=== PATIENT | female | born 1940 | race Caucasian/White ===

== ENCOUNTER 2017-11-16 07:10 | Day surgery (SDC) | payer OTHER ==
[2017-11-15 17:29] LABS: Urine Appearance CLOUDY; Urine Blood NEGATIVE (NEG); Urine Color YELLOW; Urine Glucose NEGATIVE (NEG); Urine Protein NEGATIVE (NEG); Urine pH 5.5 (5.0-7.0)
[2017-11-15 17:40] LABS: Urine Bilirubin NEGATIVE (NEG); Urine Microscopic Reflex ORDER UMIC
[2017-11-15 17:59] LABS: Urine Bacteria 20-50 /HPF (<20); Urine Culture Reflex Order REFLEXED; Urine RBC <5 /HPF (NONE SEEN)
[2017-11-15 18:00] LABS: Calcium Oxalate Crystals- Ur MANY (NONE SEEN)
[2017-11-16] MEDS ORDERED: Ringers Lactate 1,000 ML IV ONE (07:44)
[2017-11-16] MEDS ORDERED: CEFAZOLIN/SWI 1gm 1 GM/10 ML SYR ONE (07:45)
[2017-11-16] MEDS: BOTU TOX TYPE A 100 UNIT/VIAL ID SCH ×2 (08:04→08:33)
[2017-11-16] MEDS ORDERED: LIDOCAINE 2% MPF 5 ML VIAL ONE (08:19)
[2017-11-16] MEDS ORDERED: MIDAZOLAM HCL 2 MG/2 ML INJ ONE (08:19)
[2017-11-16] MEDS ORDERED: PROPOFOL 200 MG/20 ML VIAL IV ONE ×2 (08:19→08:37)
[2017-11-16] MEDS ORDERED: NS 0.9% VIAL 20 ML ONE (08:26)
[2017-11-16 10:06] VITALS: BP 117/88; TEMP 97; O2SAT 95
--- NOTE | 2017-11-16 19:59 | OP ---
Date of Procedure: 11/16/2017 Surgeon: Eda Ashley MD Preoperative Diagnosis: Refractory overactive bladder. Postoperative Diagnosis: Refractory overactive bladder. Procedures Performed: Cystoscopy, injection of Botox. Anesthesia: MAC. Specimens: None. Complications: None. Drains: None. Condition: The patient is stable. Indications: The patient is a 76-year-old with refractory overactive bladder. She has back pain and spinal stenosis, some of the urge urinary incontinence, Urgency incontinence is likely due to this, however, she was tried on medical treatment and failed, so she was consented for surgery. Procedure In Detail: After informed consent was verified, patient was brought back to the OR. She w as placed in a supine fashion on the operating table. After MAC was given, she was placed in a dorsa l lithotomy position. One gram of Ancef was given. She was placed in a dorsal lithotomy position an d cystoscopy was performed with the help of 30-degree lens, a 17-Thai sheath, and normal saline for distention medium. The bladder was filled about to 300 and scope was performed checking all the wal ls of the bladder including the trigone, area above the trigone, the dome, lateral hernadez. No evidenc e of any tumor, foreign body, or diverticula trabeculation seen. Metaplastic change seen in the trig onal transitional epithelium. Both ureteric orifices were normal in position and had strong jets of urine from each side. The Botox 100 units was taken and diluted in 10 mL of normal saline, and this was injected 0.5 cc in 20 locations. Then, another 1 mL of saline flush was used to flush the catheter with 2 more injectio ns. Three rows of injections were done. She had an excellent hemostasis. The sites of injection neff ve small clots that were hemostatic. So, after irrigation and drainage of the bladder, the scope and the sheath were removed. The patient was recovered from anesthesia and taken to PACU in stable cond ition. She will follow up with me in 5 days and then in 10 days for voiding trials and postop follow up appointment. RENNY/XAVIER Voice ID: [id number] Report ID: [id number]
== END 2017-11-16 09:50 | disposition home or self-care (01) ==
LOC: OR 07:10
PROVIDERS: ATTEND Obstetrics & Gynecology
PROC: 0TJB8ZZ Inspection of Bladder, Via Natural or Artificial Opening Endoscopic (ICD-10-PCS; 2017-11-16)
PROC: 3E0K8GC Introduction of Other Therapeutic Substance into Genitourinary Tract, Via Natural or Artificial Opening Endoscopic (ICD-10-PCS; principal; 2017-11-16 08:30)
DX: N32.81 Overactive bladder (principal); N95.2 Postmenopausal atrophic vaginitis; I10 Essential (primary) hypertension; N39.3 Stress incontinence (female) (male)
CPT/HCPCS: 53899; 87077; 87086; 87088; 87186; J0585; J0690; J2250; 81003; 81015

== ENCOUNTER 2018-09-19 10:31 | Day surgery (SDC) | payer OTHER ==
[2018-09-19] MEDS ORDERED: NA CHLORIDE 0.9% 500 ML ONE (12:09)
[2018-09-19] MEDS ORDERED: BUPIVACAINE 0.25% PF 10 ML VIAL ONE (12:11)
[2018-09-19] MEDS ORDERED: LIDOCAINE 2% MPF 5 ML VIAL ONE (12:11)
[2018-09-19] MEDS ORDERED: NS 0.9% VIAL 10 ML ONE (12:21)
[2018-09-19] MEDS ORDERED: TETRACAINE HCL 0.5% 4ML OPTH ONE (12:23)
[2018-09-19] MEDS: EPINEPHRINE/PF 1 MG/ML AMP ONE ×2 (13:17→14:42)
[2018-09-19] MEDS: BALANCED SALT IRRIG PLAIN 500 ML BTL IRR ONE ×2 (13:17→14:40)
[2018-09-19] MEDS: DUOVISC 1 KIT OPTH ONE ×2 (13:18→14:42)
[2018-09-19] MEDS: MOXIFLOXACIN HCL 10 DROPS/ML **OR USE OPTH ONE ×2 (13:18→14:57)
[2018-09-19] MEDS: PHENYLEPHRINE 10% OPTH 5ML ONE ×3 (13:38→13:48)
[2018-09-19] MEDS: CYCLOPENTOLATE 1% OPTH 2 ML ONE ×3 (13:38→13:48)
[2018-09-19] MEDS ORDERED: LIDOCAINE 1% MPF 5 ML VIAL ONE (14:35)
[2018-09-19] MEDS ORDERED: PROPOFOL 200 MG/20 ML VIAL IV ONE (14:35)
--- NOTE | 2018-09-19 15:07 | P.BOP ---
Preoperative diagnosis: Nuclear sclerotic and posterior subcapsular cataract OD Postoperative diagnosis: Same Primary procedure: Phacoemulsification with IOL OD Estimated blood loss: None Anesthesia: Local (Subtenon's infusion with anesthesia for cataract surgery) Complications: None Implants: ZCB00 +20.5 Transferred to: Other (Day surgery) Condition: Good
[2018-09-19 15:13] VITALS: BP 126/94; TEMP 97; O2SAT 98
--- NOTE | 2018-09-20 02:19 | OP ---
Date of Procedure: 09/19/2018 Surgeon: Lakshmi Bhatt MD Anesthesiologist: Peter Neely CRNA, Yahaira Bustamante CRNA, Perez Mitchell MD. Preoperative Diagnosis: Nuclear sclerotic cataract and posterior subcapsular cataract OD (right eye) . Operation Performed: Phacoemulsification with intraocular lens implant, right eye. Anesthesia: Per cataract surgery. Complications: None. Description Of Procedure: In day surgery, the patient was prepped with Betadine and draped. A conju nctival incision was made in the inferior nasal quadrant with Angie scissors. A sub-Tenon block c onsisting of a 1:1 mixture of 2% Xylocaine and 0.25% bupivacaine was placed through the conjunctival incision with a blunt cannula. A Honan balloon was placed over the eye and the patient was transferr ed to the operating room. In the operating room the patient was prepped and draped in the usual sterile fashion for ophthalmic surgery. A lid speculum was placed in the right eye. Two paracentesis sites were made superiorly an d inferiorly in the limbal cornea. Viscoat was placed in the anterior chamber and a crescent blade w as used to make a corneal groove and tunnel, and a keratome was used to enter the anterior chamber. Provisc was placed in the anterior chamber and a 360 degree capsulotomy was performed with a cystitom e. The lens was hydrodissected with BSS and rotated freely. The lens was removed with a stop and ch op technique. 14.64 Phaco CDE was used to remove the lens. Residual cortex was removed with the irr igation and aspiration. Provisc was placed in the capsular bag. A ZCB00 + 20.5 lens was placed in t he capsular bag without complications. Irrigation and aspiration were used to remove residual viscoe lastic. The paracentesis sites were hydrated with BSS. The wound and paracentesis sites were inspec batsheva and found to be watertight. Vigamox 0.07 cc was placed intracamerally at the end of the procedur e. The eye was irrigated with balanced salt solution. The eye was patched with a soft cotton patch and Kelly metal shield. The patient was returned to day surgery in good condition. Discharge Instructions: Ms. Jason Joseph is discharged to home in good condition and is to follow up with Dr. Leidlein in the morning. SHAUN/XAVIER Voice ID: [id number] Report ID: [id number]
== END 2018-09-19 15:28 | disposition home or self-care (01) ==
LOC: OR 10:31
PROVIDERS: ATTEND Ophthalmology Retina Specialist
PROC: 08RJ3JZ Replacement of Right Lens with Synthetic Substitute, Percutaneous Approach (ICD-10-PCS; principal; 2018-09-19 12:15)
DX: H25.11 Age-related nuclear cataract, right eye (principal); H25.041 Posterior subcapsular polar age-related cataract, right eye; I10 Essential (primary) hypertension; K21.9 Gastro-esophageal reflux disease without esophagitis; E78.00 Pure hypercholesterolemia, unspecified; F41.9 Anxiety disorder, unspecified; Z88.6 Allergy status to analgesic agent; Z88.8 Allergy status to other drugs, medicaments and biological substances; Z80.9 Family history of malignant neoplasm, unspecified
CPT/HCPCS: 36415; 84132; 66984; J2704; J0171

== ENCOUNTER 2019-10-20 14:34 | Emergency (ER) | payer OTHER ==
[2019-10-20] MEDS ORDERED: KETOROLAC 30 MG/ML INJ ONE (15:37)
[2019-10-20 15:52] LABS: Potassium 3.4 mmol/L (3.5-5.1)
[2019-10-20 15:57] LABS: Absolute Lymphocytes (CBC) 1.8 K/uL (0.7-4.9); Basophils % 0.5 % (0-1.3); Hematocrit 37.8 % (36.0-45.0); Lymphocytes % 25.7 % (15.3-44.8); MPV 9.7 fL (7.6-11.3)
--- NOTE | 2019-10-20 16:42 | RAD REPORT ---
EXAM DESCRIPTION: CT - Head C Spine Cap W Con - 10/20/2019 4:19 pm CLINICAL HISTORY: PAIN COMPARISON: Abdomen Pelvis W Contrast dated 05/12/2018 TECHNIQUE: Axial [address] head images were obtained. Axial [address] cervical spine images were obtaine d with sagittal and coronal reconstruction images reviewed. During dynamic enhancement of 100mL non-i onic contrast, axial 5 mm images of the chest, abdomen and pelvis were obtained. Biphasic technique p erformed of the abdomen and pelvis. All CT scans are performed using dose optimization technique as appropriate and may include automated exposure control or mA/KV adjustment according to patient size. FINDINGS: No intracranial hemorrhage, mass or edema. No midline shift or abnormal fluid collection. Mild to moderate atrophy and mild chronic ischemic changes are present. Ventricles are in proportion to the amount of volume loss. Arterial and physiologic calcifications are present. Mastoid air cells and paranasal sinuses are clear. No skull fracture. CT cervical spine imaging shows normal height. Normal alignment of the vertebrae. Degenerative change present at the dens C1 level. Facet joint degenerative changes minimal. No disc space narrowing. No paraspinal mass or hematoma seen. Central canal detail is inherently limited. Concerns for traumatic disc herniation or traumatic cord injury can be further addressed with MR imaging. CT chest shows no pneumothorax, pulmonary contusion or pleural fluid collection. No mediastinal hemat maisha and the aorta and pulmonary arteries are unremarkable. No chest will mass or abnormal axillary fi nding. No displaced rib fracture or other significant bony finding. Bilateral breast implants are in place. Scarring changes are seen in the lung parenchyma. Neurostimulator device in place in the lower left back soft tissues extending wiring into the central canal. CT abdomen and pelvis show no injury to solid abdominal viscera. Gallbladder and biliary tree are unr emarkable. No bowel injury or significant finding. No free air, free fluid or abnormal stranding. No urinary bladder abnormality. Postsurgical and degenerative changes are present in the lower lumbar spine. No acute lumbar or pelvi c finding. No significant vascular finding. IMPRESSION: No acute CT Head finding. No acute or significant cervical spine finding. No significant CT Chest finding. No significant CT Abdomen and Pelvis finding.
--- NOTE | 2019-10-20 17:17 | EDPHYS ---
Physician Documentation [facility] Name: Alice Joseph Age: 78 yrs Sex: Female : 1940 Arrival Date: 10/20/2019 Time: 14:34 Bed 19 Private MD: ED Physician Prashant Guy HPI: 10/19 17:15 This 78 yrs old Female presents to ER via EMS with complaints of Fall Injury. ma2 17:15 Details of fall: The patient fell from a supine position. Onset: The symptoms/episode ma2 began/occurred suddenly, 1 hour(s) ago. Severity of symptoms: in the emergency department the symptoms have improved, are actually worse, shortness of breath. The patient has not experienced similar symptoms in the past. Historical: - Home Meds: 15:12 verapamil 180 mg Oral TbER 1 tab once daily [Active]; hydrochlorothiazide 12.5 mg Oral bp cap 1 cap once daily [Active]; Xanax 2 mg Oral tab at night or prn for anxiety [Active]; pravastatin 40 mg Oral tab 1 tab once daily [Active]; pantoprazole 40 mg Oral TbEC 1 tab 2 times per day [Active]; clobenzaprine 5 mg 1-2 at bedtime prn [Active]; topiramate 50 mg oral tab 1 tab 2 times per day [Active]; alendronate 70 mg/75 mL oral soln 75 mL once wkly [Active]; Apriso 0.375 gram oral cp24 4 caps once daily [Active]; - PMHx: 15:12 chronic back pain; GERD; hiatal hernia; Hypertension; ibs; bp - Immunization history:: Adult Immunizations up to date. - Social history:: Smoking status: Patient denies any tobacco usage or history of. Patient/guardian denies using alcohol, street drugs, The patient lives with family. - Family history:: not pertinent. ROS: 17:15 Constitutional: Negative for fever, chills, and weight loss. ma2 17:15 All other systems are negative. Exam: 17:15 Constitutional: This is a well developed, well nourished patient who is awake, alert, ma2 and in no acute distress. Head/Face: scalp contusion Normocephalic, atraumatic. Eyes: Pupils equal round and reactive to light, extra-ocular motions intact. Lids and lashes normal. Conjunctiva and sclera are non-icteric and not injected. Cornea within normal limits. Periorbital areas with no swelling, redness, or edema. ENT: Nares patent. No nasal discharge, no septal abnormalities noted. Tympanic membranes are normal and external auditory canals are clear. Oropharynx with no redness, swelling, or masses, exudates, or evidence of obstruction, uvula midline. Mucous membranes moist. Neck: Trachea midline, no thyromegaly or masses palpated, and no cervical lymphadenopathy. Supple, full range of motion without nuchal rigidity, or vertebral point tenderness. No Meningismus. Chest/axilla: Normal chest wall appearance and motion. Nontender with no deformity. No lesions are appreciated. Cardiovascular: Regular rate and rhythm with a normal S1 and S2. No gallops, murmurs, or rubs. Normal PMI, no JVD. No pulse deficits. Respiratory: Lungs have equal breath sounds bilaterally, clear to auscultation and percussion. No rales, rhonchi or wheezes noted. No increased work of breathing, no retractions or nasal flaring. Abdomen/GI: Soft, non-tender, with normal bowel sounds. No distension or tympany. No guarding or rebound. No evidence of tenderness throughout. Back: No spinal tenderness. No costovertebral tenderness. Full range of motion. Female : Normal external genitalia. MS/ Extremity: Pulses equal, no cyanosis. Neurovascular intact. Full, normal range of motion. Neuro: Awake and alert, GCS 15, oriented to person, place, time, and situation. Cranial nerves II-XII grossly intact. Motor strength 5/5 in all extremities. Sensory grossly intact. Cerebellar exam normal. Normal gait. Vital Signs: 14:31 BP 148 / 91; Pulse 83; Temp 97.3(O); Pulse Ox 100% on R/A; jp3 14:35 BP 159 / 99; Pulse 80; Resp 18; Temp 97.3; Pulse Ox 100% ; Weight 71.67 kg; Height 5 bp ft. 3 in. (160.02 cm); 15:32 BP 162 / 97; Pulse 74; Resp 16; Pulse Ox 95% ; bp 16:34 BP 132 / 90; Pulse 73; Resp 16; Pulse Ox 98% ; bp 18:00 BP 137 / 100; Pulse 71; Resp 16; Temp 97.5; Pulse Ox 95% ; bp 14:35 Body Mass Index 27.99 (71.67 kg, 160.02 cm) bp MDM: 14:55 Patient medically screened. ma2 17:15 Differential diagnosis: abrasion, closed head injury, contusion, fracture. Data ma2 reviewed: vital signs, nurses notes. Counseling: I had a detailed discussion with the patient and/or guardian regarding: the historical points, exam findings, and any diagnostic results supporting the discharge/admit diagnosis, the presence of at least one elevated blood pressure reading (>120/80) during this emergency department visit, the need for outpatient follow up. Response to treatment: the patient's symptoms have resolved after treatment. 10/19 15:10 Order name: Basic Metabolic Panel; Complete Time: 16:55 ma2 10/19 15:10 Order name: CBC with Diff; Complete Time: 16:55 ma2 10/19 15:10 Order name: CT Traumagram (Head C Spine CAP W Con); Complete Time: 16:55 ma2 10/19 15:10 Order name: Type And Screen; Complete Time: 16:55 ma2 10/19 15:58 Order name: CREATININE WHOLE BLOOD; Complete Time: 16:55 EDTN 10/19 15:10 Order name: Labs collected and sent; Complete Time: 15:31 ma2 Administered Medications: 15:30 Drug: TORadol 30 mg Route: IVP; Site: right forearm; bp 16:35 Follow up: Response: Pain is decreased bp Disposition: 10/20/19 17:16 Discharged to Home. Impression: Acute post-traumatic headache. - Condition is Stable. - Discharge Instructions: Concussion, Adult, Fall Prevention in Hospitals, Adult. - Medication Reconciliation Form, Thank You Letter, Antibiotic Education, Prescription Opioid Use form. - Follow up: Private Physician; When: Tomorrow; Reason: Continuance of care. Signatures: Dispatcher [employer] Jose Roa RN RN bp Alzahri, Mohammad, MD MD ma2 Corrections: (The following items were deleted from the chart) 18:02 17:16 10/20/2019 17:16 Discharged to Home. Impression: Acute post-traumatic headache. bp Condition is Stable. Forms are Medication Reconciliation Form, Thank You Letter, Antibiotic Education, Prescription Opioid Use. Follow up: Private Physician; When: Tomorrow; Reason: Continuance of care. ma2
--- NOTE | 2019-10-20 17:17 | ER ---
Nurse's Notes [facility] Name: Alice Joseph Age: 78 yrs Sex: Female : 1940 Arrival Date: 10/20/2019 Time: 14:34 Bed 19 Private MD: Diagnosis: Acute post-traumatic headache Presentation: 10/19 14:35 Chief complaint: EMS states: FALL FROM STANDING ON BED, NO LOC, AMBULATORY ON SCENE. bp Coronavirus screen: Proceed with normal triage. Ebola Screen: No symptoms or risks identified at this time. Initial Sepsis Screen: Does the patient meet any 2 criteria? No. Patient's initial sepsis screen is negative. Does the patient have a suspected source of infection? No. Patient's initial sepsis screen is negative. Risk Assessment: Do you want to hurt yourself or someone else? Patient reports no desire to harm self or others. Onset of symptoms is unknown. Care prior to arrival: Glucose check: 79. 14:35 Method Of Arrival: EMS: [facility] bp 14:35 Acuity: CHATA 3 bp Triage Assessment: 14:35 General: Appears in no apparent distress. comfortable, Behavior is calm, cooperative, bp appropriate for age. Pain: Complains of pain in left knee. EENT: No deficits noted. Neuro: No deficits noted. Cardiovascular: No deficits noted. Respiratory: No deficits noted. GI: No signs and/or symptoms were reported involving the gastrointestinal system. : No signs and/or symptoms were reported regarding the genitourinary system. Derm: No deficits noted. Musculoskeletal: No deficits noted. Historical: - Home Meds: 15:12 verapamil 180 mg Oral TbER 1 tab once daily [Active]; hydrochlorothiazide 12.5 mg Oral bp cap 1 cap once daily [Active]; Xanax 2 mg Oral tab at night or prn for anxiety [Active]; pravastatin 40 mg Oral tab 1 tab once daily [Active]; pantoprazole 40 mg Oral TbEC 1 tab 2 times per day [Active]; clobenzaprine 5 mg 1-2 at bedtime prn [Active]; topiramate 50 mg oral tab 1 tab 2 times per day [Active]; alendronate 70 mg/75 mL oral soln 75 mL once wkly [Active]; Apriso 0.375 gram oral cp24 4 caps once daily [Active]; - PMHx: 15:12 chronic back pain; GERD; hiatal hernia; Hypertension; ibs; bp - Immunization history:: Adult Immunizations up to date. - Social history:: Smoking status: Patient denies any tobacco usage or history of. Patient/guardian denies using alcohol, street drugs, The patient lives with family. - Family history:: not pertinent. Screenin:45 Abuse screen: Denies threats or abuse. Denies injuries from another. Nutritional bp screening: No deficits noted. Tuberculosis screening: No symptoms or risk factors identified. Fall Risk None identified. Assessment: 14:45 General: SEE TRIAGE NOTE. bp 15:32 Reassessment: CT PENDING. PT REMAINS GCS 15, VS STABLE. bp 16:34 Reassessment: PT RETURNED FROM CT. ALL CURRENT ORDERS COMPLETE. bp 18:00 Reassessment: PT D/C HOME VIA W/C WITH FAMILY, DX WITH POST-TRAUMATIC HEADACHE. bp Vital Signs: 14:31 BP 148 / 91; Pulse 83; Temp 97.3(O); Pulse Ox 100% on R/A; jp3 14:35 BP 159 / 99; Pulse 80; Resp 18; Temp 97.3; Pulse Ox 100% ; Weight 71.67 kg; Height 5 bp ft. 3 in. (160.02 cm); 15:32 BP 162 / 97; Pulse 74; Resp 16; Pulse Ox 95% ; bp 16:34 BP 132 / 90; Pulse 73; Resp 16; Pulse Ox 98% ; bp 18:00 BP 137 / 100; Pulse 71; Resp 16; Temp 97.5; Pulse Ox 95% ; bp 14:35 Body Mass Index 27.99 (71.67 kg, 160.02 cm) bp ED Course: 14:34 Patient arrived in ED. bp 14:35 Arm band placed on. bp 14:39 Triage completed. bp 14:45 Patient has correct armband on for positive identification. Bed in low position. Call bp light in reach. Adult w/ patient. 14:55 Prashant Guy MD is Attending Physician. ma2 14:59 Warm blanket given. Verbal reassurance given. Pulse ox on. NIBP on. jp3 15:08 Jose Lee, DAYO is Primary Nurse. bp 15:25 Inserted saline lock: 20 gauge in right forearm, using aseptic technique. bp 16:20 CT Traumagram (Head C Spine CAP W Con) In Process Unspecified. EDMS 18:01 No provider procedures requiring assistance completed. IV discontinued, intact, bp bleeding controlled, No redness/swelling at site. Pressure dressing applied. Administered Medications: 15:30 Drug: TORadol 30 mg Route: IVP; Site: right forearm; bp 16:35 Follow up: Response: Pain is decreased bp Outcome: 17:16 Discharge ordered by MD. pitt 18:01 Discharged to home via wheelchair, with family. bp 18:01 Condition: stable 18:01 Discharge instructions given to patient, Instructed on discharge instructions, follow up and referral plans. Demonstrated understanding of instructions, follow-up care. 18:02 Patient left the ED. bp Signatures: Dispatcher [employer] Jose Roa, DAYO RN Prashant Mix MD MD ma2 Pisarski, Jacob jp3
[2019-10-20 18:14] VITALS: BP 137/100; TEMP 97.5; O2SAT 95
== END 2019-10-20 18:02 | disposition home or self-care (01) ==
LOC: ER 14:34
DX: G44.319 Acute post-traumatic headache, not intractable (principal); W19.XXXA Unspecified fall, initial encounter; Y93.9 Activity, unspecified; Y92.9 Unspecified place or not applicable; I10 Essential (primary) hypertension
CPT/HCPCS: 85025; 80048; 36415; 86900; 86850; 82565; 86901; 70450; 72125; 71260; 74177; 96374; 99284; Q9967

== ENCOUNTER 2022-02-24 06:23 | Day surgery (SDC) | payer OTHER, MEDICARE ==
[2022-02-20 15:53] LABS: SARS-CoV-2 Antigen Rapid Res Negative (Negative)
[2022-02-24] MEDS ORDERED: propofoL 200 MG/20 ML VIAL IV ONE (06:28)
[2022-02-24] MEDS ORDERED: MIDAZOLAM HCL 2 MG/2 ML INJ ONE (06:29)
[2022-02-24] MEDS ORDERED: FENTANYL CITR 100 MCG/2 ML ONE (06:29)
[2022-02-24] MEDS ORDERED: LIDOCAINE 2% MPF 5 ML VIAL ONE (06:29)
[2022-02-24] MEDS ORDERED: Ringers Lactate 1,000 ML IV ONE (06:47)
[2022-02-24] MEDS ORDERED: CEFAZOLIN SODIUM 2 GM/VIAL ONE (06:47)
[2022-02-24] MEDS ORDERED: ROCURONIUM 50 MG/5 ML VIAL IV ONE (07:03)
[2022-02-24] MEDS ORDERED: BUPIVACAINE 0.25% PF 30 ML VIAL ONE (07:17)
[2022-02-24] MEDS ORDERED: ONDANSETRON 4 MG/2 ML VIAL ONE (08:05)
[2022-02-24] MEDS ORDERED: KETOROLAC 30 MG/ML INJ ONE (09:11)
[2022-02-24] MEDS ORDERED: HOME MED 1 EA UNK (Oxycodone Hcl/Acetaminophen [Oxycodon-Acetaminophen 7.5-300] Tablet) PO PRN (09:44)
[2022-02-24] MEDS ORDERED: [UNRECOGNIZED DRUG - OTHER] VAG SCH (09:45)
[2022-02-24] MEDS ORDERED: ESTROGENS,CONJ VAG CREAM VAG SCH (09:45)
[2022-02-24] MEDS ORDERED: ONDANSETRON 4 MG/2 ML VIAL IV PRN (09:48)
[2022-02-24] MEDS ORDERED: HYDROCODONE/APAP 5/325 MG TAB PO PRN (09:48)
[2022-02-24] MEDS ORDERED: PROMETHAZINE INJ 25 MG/ML AMP IV PRN (09:48)
[2022-02-24] MEDS ORDERED: Ringers Lactate 1,000 ML IV SCH (10:00)
[2022-02-24] MEDS ORDERED: POLYETHYL GLY 3350 17 GM/DOSE PO SCH (10:00)
--- NOTE | 2022-02-24 10:00 | P.BOP ---
Preoperative diagnosis: Refractory OAB Postoperative diagnosis: same Primary procedure: SNM Stg1 quadripolar tined lead placement-Lf S3 under flouro guidance Secondary procedure: and programming City Dispatch Supervisor: NONE,NONE Estimated blood loss: min Specimen: none Findings: left and right both tried, Left lead: all 4 leads with good response Anesthesia: General Complications: None Implants: Interstim Transferred to: Recovery Room Condition: Good
--- NOTE | 2022-02-24 12:20 | RAD REPORT ---
EXAM DESCRIPTION: RAD - Fluoroscopy <1 Hour - 02/24/2022 12:09 pm CLINICAL HISTORY: SACRAL NERUO MODULATION COMPARISON: Liver Only dated 01/21/2018 FINDINGS: Fluoroscopy time: 2.3 minutes
[2022-02-24 13:06] VITALS: BP 94/75; TEMP 96.6; O2SAT 100
[2022-02-24] MEDS ORDERED: LORAZEPAM 0.5 MG TABLET PO SCH (21:00)
[2022-02-24] MEDS ORDERED: PRIMIDONE 50 MG TAB PO SCH (21:00)
[2022-02-24] MEDS ORDERED: HOME MED 1 EA UNK (Cyclobenzaprine Hcl [Flexeril] 5 MG Tablet) PO SCH (21:00)
[2022-02-24] MEDS ORDERED: TOPIRAMATE 25 MG TAB PO SCH (21:00)
[2022-02-25] MEDS ORDERED: ESCITALOPRAM 20 MG TAB PO SCH (09:00)
[2022-02-25] MEDS ORDERED: HOME MED 1 EA UNK (Lactobacillus Acidophilus [Probiotic] Capsule) PO SCH (09:00)
[2022-02-25] MEDS ORDERED: HOME MED 1 EA UNK (Pravastatin Sodium [Pravachol] 40 MG Tablet) PO SCH (09:00)
[2022-02-25] MEDS ORDERED: PANTOPRAZOLE 40MG TABLET PO SCH (09:00)
[2022-02-25] MEDS ORDERED: CYANOCOBALAMIN 500 MCG PO SCH (09:00)
[2022-02-25] MEDS ORDERED: PHENTERMINE HCL 15 MG PO SCH (09:00)
[2022-02-25] MEDS ORDERED: HOME MED 1 EA UNK (Potassium Citrate [Potassium] 99 MG Capsule) PO SCH (09:00)
[2022-02-25] MEDS ORDERED: TOPIRAMATE 25 MG TAB PO SCH (09:00)
[2022-02-25] MEDS ORDERED: HOME MED 1 EA UNK (Mesalamine [Mesalamine] 1.2 GM Tablet.Dr) PO SCH (09:00)
[2022-02-25] MEDS ORDERED: HOME MED 1 EA UNK (Cetirizine Hcl [Zyrtec] 10 MG Tablet) PO SCH (09:00)
[2022-02-25] MEDS ORDERED: ASCORBIC ACID 500 MG TABLET PO SCH (09:00)
[2022-02-25] MEDS ORDERED: hydroCHLOROthiazide 12.5 MG CAP PO SCH (09:00)
== END 2022-02-24 11:45 | disposition home or self-care (01) ==
LOC: PRE 06:23
PROVIDERS: ATTEND Obstetrics & Gynecology
PROC: 01HY3MZ Insertion of Neurostimulator Lead into Peripheral Nerve, Percutaneous Approach (ICD-10-PCS; principal; 2022-02-24 07:30)
DX: N32.81 Overactive bladder (principal); R35.0 Frequency of micturition; N39.46 Mixed incontinence; I10 Essential (primary) hypertension; Z20.822 Contact with and (suspected) exposure to COVID-19; K21.9 Gastro-esophageal reflux disease without esophagitis
CPT/HCPCS: 36415; 87811; 64561; J2704; J2001; J2250; J3010; J7120; J2405; 76000

== ENCOUNTER 2022-03-03 06:19 | Day surgery (SDC) | payer OTHER, MEDICARE ==
[2022-03-03] MEDS ORDERED: CEFAZOLIN SODIUM 2 GM/VIAL ONE (06:40)
[2022-03-03] MEDS ORDERED: Ringers Lactate 1,000 ML IV ONE (06:40)
[2022-03-03] MEDS ORDERED: propofoL 200 MG/20 ML VIAL IV ONE (07:13)
[2022-03-03] MEDS ORDERED: LIDOCAINE 2% MPF 5 ML VIAL ONE (07:13)
[2022-03-03] MEDS ORDERED: MIDAZOLAM HCL 2 MG/2 ML INJ ONE (07:18)
[2022-03-03] MEDS: LIDOCAINE 1% W/EPI 1:100,000 30 ML VIAL ONE ×2 (07:49→07:59)
[2022-03-03] MEDS ORDERED: [UNRECOGNIZED DRUG - OTHER] VAG SCH (08:45)
[2022-03-03] MEDS ORDERED: ESTROGENS,CONJ VAG CREAM VAG SCH (08:45)
[2022-03-03] MEDS ORDERED: HYDROCODONE/APAP 5/325 MG TAB PO PRN (08:48)
[2022-03-03] MEDS ORDERED: PROMETHAZINE INJ 25 MG/ML AMP IV PRN (08:48)
--- NOTE | 2022-03-03 08:54 | P.BOP ---
Preoperative diagnosis: refractory OAB Postoperative diagnosis: same Primary procedure: Stage 2 interstim(implantation of non-rechargeable battery) Secondary procedure: and programming Yard Warehouse Worker: NONE,NONE Estimated blood loss: min Specimen: none Findings: clean pocket, permanentlead placed under battery, 2layer closure,dermabond Anesthesia: MAC Complications: None Transferred to: Recovery Room Condition: Good
[2022-03-03] MEDS ORDERED: ASCORBIC ACID 500 MG TABLET PO SCH (09:00)
[2022-03-03] MEDS ORDERED: ESCITALOPRAM 20 MG TAB PO SCH (09:00)
[2022-03-03] MEDS ORDERED: CYANOCOBALAMIN 500 MCG PO SCH (09:00)
[2022-03-03] MEDS ORDERED: HOME MED 1 EA UNK (Cetirizine Hcl [Zyrtec] 10 MG Tablet) PO SCH (09:00)
[2022-03-03] MEDS ORDERED: hydroCHLOROthiazide 12.5 MG CAP PO SCH (09:00)
[2022-03-03 09:40] VITALS: TEMP 97.8; O2SAT 97
[2022-03-03 09:41] VITALS: BP 114/56
--- NOTE | 2022-03-03 19:08 | OP ---
Date of Procedure: 03/03/2022 Surgeon: Eda Ashley MD Drop Crew Laborer: None. Preoperative Diagnosis: Refractory overactive bladder. Postoperative Diagnosis: Refractory overactive bladder. Procedures Performed: 1.Stage II InterStim incision and subcutaneous implantation of the sacral nerve stimulator. 2.Electronic analysis and programming. Specimens: None. Complications: None. Drains: None. Anesthesia: MAC. Estimated Blood Loss: Minimal. Condition: Stable. Findings: Clean pocket, permanent leads placed coiled under the battery, two-layer closure with Derm abond, the battery placed in the left buttock and the lead wire also on the left paraspinal line. Description Of Procedure: After successful stage I where the patient had improved significantly over 90%, went from the diapers to not needing them at all and just wearing a light pad so she was consen batsheva and taken back for stage II. The patient was then properly identified, placed in a prone positio n in the OR after MAC was given. She was then prepped and draped in a sterile fashion using ChloraPr ep. Local injection with 1% lidocaine 10 cc was administered. The previous buttock pocket incision was opened up after opening the Dermabond glue on the top. The incision was extended slightly laterally in order for me to be able to fit the battery. The lead in percutaneous extension connection was identified and elevated. The percutaneous extension was cut an d removed from the field ensuring stability. The subcutaneous pocket anterior to the muscle was enla rged and there was no need for any hemostasis with cautery. The sutures holding the protective boot were cut and the protective boot was retracted. The set screws were exposed and loosened with a hex wrench. The bur was removed and discarded. The lead was cleansed off body fluid and dried. It was inserted into the header until the blue tip w as seen at the distal window. Then the single set screw was tightened. Neurostimulator was placed in the subcutaneous pocket after the pocket was fully extended. The etche d identification side placed upwards and the excessive lead wrapped in a counter-clockwise clockwise fashion around the neurostimulator under it. The programming head was then placed over the implanted neurostimulator in a sterile cover to ensure adequate lead connection and that parameters are within normal limits. After impedances were checked and they were within normal limits, the pocket was irr igated with antibiotic solution and sterile water. Then, the subcutaneous tissue was closed with the help of 3-0 chromic interrupted sutures x4 and then 4-0 Monocryl skin sutures in a continuous runnin g subcuticular fashion. Counts were correct. Dermabond was placed. The incision was dressed up. E BL was less than 10. Transferred to the recovery room in same-day surgery in a satisfactory conditio n. Using the clinician perl programmer, the generator was programmed with program 1 with an amplitude of 0.2. The patient was given instructions on utilizing the patient perl programmer prior to discharge. Fin ally, the settings will be finalized tomorrow when she is more awake. Discussed the findings with th e patient and her since she was recovered. She will see us in 2 weeks in the office. BYRON Voice ID: [id number] Report ID: [id number]
[2022-03-03] MEDS ORDERED: HOME MED 1 EA UNK (Cyclobenzaprine Hcl [Flexeril] 5 MG Tablet) PO SCH (21:00)
== END 2022-03-03 09:18 | disposition home or self-care (01) ==
LOC: OR 06:19
PROVIDERS: ATTEND Obstetrics & Gynecology
PROC: 0JH73BZ Insertion of Single Array Stimulator Generator into Back Subcutaneous Tissue and Fascia, Percutaneous Approach (ICD-10-PCS; principal; 2022-03-03 07:30)
DX: N32.81 Overactive bladder (principal); R35.0 Frequency of micturition; N39.46 Mixed incontinence; I10 Essential (primary) hypertension; K21.9 Gastro-esophageal reflux disease without esophagitis
CPT/HCPCS: 64590; J2704; J2001; J7120; J2250